=== PATIENT | male | born 1975 | race Caucasian/White ===

== ENCOUNTER 2019-07-23 22:40 | Emergency (ER) | payer OTHER ==
[~2019-07-23] VITALS: Ht 188 cm; Wt 99.8 kg
[2019-07-23 23:16] LABS: Basophils # (auto) 0.1 10 ^3/uL (0-0.2); Eosinophils # (auto) 0.1 10 ^3/uL (0-0.8); Hematocrit 46.7 % (41.0-53.0); Hemoglobin 16.3 g/dL (13.5-17.5); Nucleated Red Blood Cells % 0.1 %; White Blood Cell 10.5 10^3/uL (4.4-10.8)
[2019-07-23 23:17] LABS: Basophils % (auto) 0.6 % (0.0-2.0); Eosinophils % (auto) 1.4 % (0.0-7.0); Lymphocytes % (auto) 28.6 % (10.0-50.0); Mean Corpuscular Hemoglobin 35.8 pg (28.0-32.0); Mean Corpuscular Hgb Conc. 34.9 g/dL (32.0-36.0); Mean Corpuscular Volume 102.6 fL (80.0-100.0); Monocytes # (auto) 0.5 10 ^3/uL (0-1.3); Monocytes % (auto) 4.9 % (0.0-12.0); Neutrophils # (auto) 6.8 10 ^3/uL (1.6-8.6); Neutrophils % (auto) 64.5 % (37.0-80.0); Platelet Count (auto) 165 10^3/uL (140-450); Red Blood Cells 4.55 10^6/uL (4.5-5.90); Red Cell Distribution Width 13.5 % (11.8-14.3)
[2019-07-23] MEDS ORDERED: SODIUM CHLORIDE 0.9% 1,000 ML IV ONE (23:30)
[2019-07-23] MEDS ORDERED: LORazepam 2MG/ML-1ML VIAL IV ONE (23:30)
[2019-07-23] MEDS ORDERED: THIAMINE INJ 100 MG in SODIUM CHLORIDE 0.9% 1,000 ML IV ONE (23:30)
[2019-07-23 23:36] LABS: Albumin 3.7 g/dL (3.4-5.0); BUN/Creatinine Ratio 7.5; Calcium 8.2 mg/dL (8.5-10.1); Potassium 3.3 mmol/L (3.5-5.1)
[2019-07-23 23:39] LABS: Total Protein 7.3 g/dL (6.4-8.2)
[2019-07-23] MEDS ORDERED: THIAMINE 100mg/ml INJ (200mg/2ml VIAL) IV ONE (23:45)
[2019-07-24] MEDS ORDERED: HALOPERIDOL LACTATE 5 MG/ML INJ VIAL ONE (00:04)
[2019-07-24] MEDS ORDERED: diphenhdrAMINE HCL 50 MG/1 ML VL ONE (00:04)
[2019-07-24] MEDS ORDERED: diphenhdrAMINE HCL 50 MG/1 ML VL IV ONE (00:30)
[2019-07-24] MEDS ORDERED: HALOPERIDOL LACTATE 5 MG/ML INJ VIAL IM ONE (00:30)
[2019-07-24 02:37] LABS: Urine Bacteria NONE SEEN /hpf (None Seen); Urine Blood Negative /uL (Negative); Urine Specific Gravity 1.004 (1.001-1.035); Urine WBC <1 /hpf (0 - 3)
[2019-07-24 02:50] LABS: Amphetamine Screen, Urine NEGATIVE (NEGATIVE); Barbiturate Scree,Urine NEGATIVE (NEGATIVE); Benzodiazephine Screen, Urine NEGATIVE (NEGATIVE); Cannabinoid Screen, Urine NEGATIVE (NEGATIVE); Cocaine Screen, Urine NEGATIVE (NEGATIVE); Opiate Scree,Urine NEGATIVE (NEGATIVE); Phencyclidine Screen, Urine NEGATIVE (NEGATIVE)
[2019-07-24] MEDS ORDERED: levETIRAcetam 500 MG/5ML INJ IV ONE (03:58)
[2019-07-24] MEDS ORDERED: SODIUM CHLORIDE 0.9% 1,000 ML IV ONE (05:00)
[2019-07-24 05:30] VITALS: BP 111/58
== END 2019-07-24 06:08 | disposition home or self-care (01) ==
LOC: EDBD 22:40 → ER 22:40
DX: G40.909 Epilepsy, unspecified, not intractable, without status epilepticus (principal); K70.10 Alcoholic hepatitis without ascites; F17.210 Nicotine dependence, cigarettes, uncomplicated; Z91.19 Patient's noncompliance with other medical treatment and regimen
CPT/HCPCS: 36415; 70450; 71045; 72125; 80053; 80307; 80320; 81001; 85025; 96361; 96365; 96367; 96372; 96375; 99285; J1200; J1630; J2060; J3411; J7030; J7060